=== PATIENT | female | born 1970 | race Caucasian/White ===

== ENCOUNTER 2020-11-12 09:21 | Emergency (ER) | payer OTHER ==
[~2020-11-12] VITALS: Ht 160 cm; Wt 90.9 kg
[~2020-11-12 09:21] MED LIST: AMLO-150 PO; ASPI1TAB31 PO; BUTA1CAP57 PO; CHOL500050 PO; FENO145T19 PO; HYDR-3237 PO; IBUP200C8 PO; LISI40TA9 PO; MULT-658 PO; SUMA100T4 PO; SUMA25TA3 PO; SUMA4PEN IM; flexeril PO; vit d3 PO
[2020-11-12 09:26] VITALS: BP 182/100
[2020-11-12] MEDS ORDERED: DIPH,PERTUSS(ACELL),TET VAC/PF 0.5 ML IM-VACC ONE ×2 (09:52→10:00)
== END 2020-11-12 10:19 ==
LOC: ED 09:45
DX: S61.401A Unspecified open wound of right hand, initial encounter (principal); X58.XXXA Exposure to other specified factors, initial encounter; Y93.89 Activity, other specified; Y92.89 Other specified places as the place of occurrence of the external cause; Y99.8 Other external cause status
CPT/HCPCS: 90471; 90715